=== PATIENT | male | born 1965 | race Caucasian/White ===

== ENCOUNTER → 2016-09-24 | Outpatient (CLI) | payer BC ==
[~2016-09-24] MED LIST: BAYER CHEWABLE81 MG PO; COLESTID1 GM PO; COLESTIPOL HCL1 G PO; FLEXERIL10 MG PO; IBUPROFEN800 MG PO; LIPITOR40 MG PO; LOMOTIL WHITE2.5 M1 DOB; LORTAB 7.5-5001 TAB PO; PANTOPRAZOLE SO40 MG PO; PRILOSEC PO; ZANTAC300 MG PO
--- NOTE | ~2016-09-24 | MR113 ---
[facility] A Service of [facility] & [facility] RADIOLOGY TEXT RESULTS PATIENT: BRUNO GRAY LOCATION: [facility] : 69 UNIT #: [id number] AGE: [address]: DEWAYNE BECKFORD MD SEX: M ORDER DR: [id number] [address] [address] [id number] O MR#: [id number] Acc #: [id number] NAME: BRUNO GRAY : 1965 SEX: M STUDY DATE/TIME: 09/24/2016 15:19 UNIT: [facility] ROOM: STUDY DESCRIPTION: MR Lumbar Wo Contrast Attending Physician: Raymundo Beckford M.D. Referring Physician: Raymundo Beckford M.D. Ordering Physician: Raymundo Beckford M.D. Primary Care Physician: Raymundo Beckford M.D. MRI CENTER REPORT This report is preliminary unless electronic signature is present. EXAM MRI of the lumbar spine without contrast dated 09/24/2016 COMPARISON STUDIES None HISTORY Complains of low back pain which extends into the left lower extremity for the last 1.5 weeks. TECHNIQUE Multisequence multiplanar imaging of the lumbar spine was obtained without contrast. FINDINGS Vertebral body heights and alignment are preserved. No fracture, subluxation or destructive bony mass is seen. Conus terminates at T12-L1. Signal of conus and cauda equina are within normal limits. Pre and paravertebral soft tissues are grossly unremarkable. L1-2: Small left foraminal to extraforaminal broad base protrusion with mild bilateral facet changes. Mild inferior left neuroforaminal encroachment. No canal stenosis. L2-3: Small left foraminal to extraforaminal broad base protrusion with mild left facet hypertrophic change. No significant canal stenosis. L3-4: Concentric disc bulge with mild bilateral facet changes, worse in the left. There is borderline size to mild canal stenosis and mild inferior bilateral neuroforaminal narrowing. L4-5: Concentric disc bulge with tiny central protrusion. Mild bilateral [facility] A Service of [facility] & [facility] RADIOLOGY TEXT RESULTS PATIENT: BRUNO GRAY LOCATION: [facility] : 69 UNIT #: [id number] AGE: [address]: DEWAYNE BECKFORD MD SEX: M ORDER DR: lateral recess stenosis is seen with moderate canal stenosis and mild inferior bilateral neuroforaminal narrowing. Mild bilateral facet changes are seen. L5-S1: Concentric disc bulge with likely superimposed small left subarticular to extraforaminal broad base protrusion and probably a tiny left central protrusion, too. There is minimal, if any, impingement of left S1 nerve root. No canal stenosis. IMPRESSION 1. Mild degenerative changes are noted at multiple levels of the lumbar spine. 2. Findings are relatively worse at L4-5 where there is mild to moderate canal stenosis along with mild bilateral lateral recess stenosis and neuroforaminal narrowing as described above. Dictated by... Kecia Moya M.D. THIS IS AN ELECTRONICALLY VERIFIED REPORT Kecia Moya M.D. at 09/25/2016 6:06 PM CPR/mikel TD: 09/24/2016 18:50 JOB #: [id number] MRI CENTER REPORT Page 1 of 1
== END | disposition home or self-care (01) ==
LOC: SMRI 14:56
DX: M54.5 Low back pain (principal); M48.06 Spinal stenosis, lumbar region; M51.26 Other intervertebral disc displacement, lumbar region
CPT/HCPCS: 72148